=== PATIENT | male | born 1985 | race Caucasian/White ===

== ENCOUNTER 2019-10-02 14:55 | Emergency (ER) | payer OTHER ==
[~2019-10-02] VITALS: Ht 175.3 cm; Wt 72.6 kg
[~2019-10-02 14:55] MED LIST: NOHOMEMEDICATIONS
[2019-10-02 15:35] LABS: ABSOLUTE EOSINOPHILS 0.1 thou/uL (0.0-0.7); ABSOLUTE LYMPHOCYTES 1.4 thou/uL (0.8-5.3); ABSOLUTE MONOCYTES 0.5 thou/uL (0.0-1.2); ABSOLUTE NEUTROPHILS 4.2 thou/uL (1.6-8.1); BASOPHILS 0.5 %; HEMATOCRIT 42.1 % (42.0-52.0); LYMPHOCYTES 22.7 %; MCH 30.8 pg (26.0-34.0); MCHC 35.7 g/dL (28.0-37.0); MCV 86.2 fL (80.0-100.0); MONOCYTES 8.7 %; MPV 8.7 fl. (7.2-11.1); NUCLEATED RBCS 0 /100WBC; PLATELET COUNT* 230 thou/uL (150-400); POLYS 67.1 %; RBC 4.88 mil/uL (4.50-6.00); RDW-CV 12.6 % (10.5-14.5); WBC 6.3 thou/uL (4.0-11.0)
[2019-10-02 15:48] LABS: CALCIUM 8.8 mg/dL (8.5-10.1); CREATININE 1.1 mg/dL (0.6-1.3)
[2019-10-02 15:52] LABS: ALBUMIN 4.2 g/dL (3.4-5.0); TOTAL BILIRUBIN 1.1 mg/dL (<0.1-1.0); TOTAL PROTEIN 7.4 g/dL (6.4-8.2)
[2019-10-02 16:11] LABS: APTT 26.9 Seconds (25.0-31.3); PROTIME 10.5 Seconds (9.20-11.50)
[2019-10-02 16:37] VITALS: BP 135/70
--- NOTE | 2019-10-06 12:23 | EKG ---
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
== END 2019-10-02 16:38 | disposition home or self-care (01) ==
LOC: M.ERS 14:55
PROVIDERS: Physician Assistant
DX: R07.89 Other chest pain (principal)